=== PATIENT | male | born 1960 | race Caucasian/White ===

== ENCOUNTER 2016-07-29 05:35 | Emergency (ER) | payer SELFPAY ==
[~2016-07-29] VITALS: Ht 175.3 cm; Wt 54.0 kg
[2016-07-29] MEDS ORDERED: METO-325 PO (05:41)
[2016-07-29] MEDS ORDERED: LISI-661 PO (05:41)
[2016-07-29] MEDS ORDERED: CARB100 PO (05:41)
[2016-07-29] MEDS ORDERED: ASPIRIN 81 MG CHEWABLE TABLET PO ONE (07:15)
[2016-07-29 07:44] LABS: BASOPHILS # (AUTO) 0.11 K/uL (0.00-0.20); BASOPHILS % (AUTO) 1.4 % (0.0-2.0); EOSINOPHILS # (AUTO) 0.36 K/uL (0.00-0.70); EOSINOPHILS % (AUTO) 4.39 % (1.0-6.0); HEMOGLOBIN 15.6 g/dL (13.5-17.5); LYMPHOCYTES # (AUTO) 2.4 K/uL (1.0-4.8); LYMPHOCYTES % (AUTO) 29.5 % (22.0-44.0); MEAN CORPUSCULAR HEMOGLOBIN 28.6 pg (26.0-34.0); MEAN CORPUSCULAR HGB CONC 32.5 G/dL (31.0-37.0); MEAN CORPUSCULAR VOLUME 88 fL (80-100); MONOCYTES # (AUTO) 0.6 K/uL (0.1-1.0); MONOCYTES % (AUTO) 7.6 % (2.0-9.0); NEUTROPHILS # (AUTO) 4.6 K/uL (1.8-7.7); NEUTROPHILS % (AUTO) 57.2 % (40.0-70.0); PLATELET COUNT (AUTO) 339 K/uL (150-450); RED BLOOD CELL COUNT(AUTO) 5.46 MIL/uL (4.50-5.90); RED CELL DISTRIBUTION WIDTH 14.5 % (11.5-14.5); WHITE BLOOD COUNT (AUTO) 8.1 K/uL (4.5-11.0)
[2016-07-29 07:53] LABS: ANION GAP 5 mmol/L (8-16); CALCIUM, TOTAL 9.2 mg/dL (8.8-10.5); CARBON DIOXIDE 30 mmol/L (22-29); CHLORIDE 105 mmol/L (98-107); CREATININE 1.02 mg/dL (0.60-1.30); GLOMERULAR FILTR. RATE CALC > 60 mL/min (>60); POTASSIUM 3.8 mmol/L (3.5-5.1); SODIUM SERUM 140 mmol/L (136-145); UREA NITROGEN, BLOOD 12 mg/dL (7-18)
[2016-07-29 08:18] LABS: ALANINE AMINOTRANSFERASE 27 U/L (12-78); ALBUMIN 4.2 g/dL (3.4-5.0); ASPARTATE AMINOTRANSFERASE 16 U/L (15-37); BILIRUBIN,TOTAL 0.5 mg/dL (0.1-1.0); CREATINE KINASE MB < 0.5 ng/mL (0-5); CREATINE KINASE, TOTAL 78 U/L (39-308); TOTAL PROTEIN, SERUM 7.9 g/dL (6.4-8.2)
[2016-07-29 08:29] LABS: B-TYPE NATRIURETIC PEPTIDE 9 pg/mL (0-100)
[2016-07-29] MEDS ORDERED: TRIHEXYPHENIDYL HCL 5 MG TABLET PO ONE (09:15)
[2016-07-29] MEDS ORDERED: LISINOPRIL 10 MG TABLET PO ONE (09:15)
[2016-07-29] MEDS ORDERED: SODIUM CHLORIDE 0.9% 1,000 ML IV ONE (09:45)
[2016-07-29 10:30] LABS: APPEARANCE,URINE CLEAR (CLEAR); GLUCOSE, URINE (UA) NEGATIVE (NEGATIVE); KETONES,URINE NEGATIVE (NEGATIVE); LEUKOCYTE ESTERASE ,URINE NEGATIVE (NEGATIVE); OCCULT BLOOD,URINE NEGATIVE (NEGATIVE); PROTEIN,URINE NEGATIVE (NEGATIVE)
[2016-07-29 10:33] LABS: ADD UA MICROSCOPIC NO
[2016-07-29 12:02] VITALS: BP 158/94
== END 2016-07-29 12:30 | disposition home or self-care (01) ==
LOC: EMS 05:37
DX: R00.1 Bradycardia, unspecified (principal); R42 Dizziness and giddiness; G40.909 Epilepsy, unspecified, not intractable, without status epilepticus; I10 Essential (primary) hypertension; G25.2 Other specified forms of tremor; F14.90 Cocaine use, unspecified, uncomplicated; F17.210 Nicotine dependence, cigarettes, uncomplicated
CPT/HCPCS: 36415; 71010; 80053; 80307; 81003; 82550; 82553; 83880; 84484; 85025; 86140; 93005; 96360; 99291; J7030